=== PATIENT | female | born 1980 | race Asian ===

== ENCOUNTER 2022-08-24 12:51 | Inpatient (IN) ==
[2022-08-24] MEDS ORDERED: SODIUM CHLORIDE 0.9% 1000ML 1,000 ML IV STA (13:10)
--- NOTE | 2022-08-24 13:32 | Emergency Department Note ---
Impression & Plan Supraventricular tachycardia, Heart palpitations ED Provider Note HISTORY OF PRESENT ILLNESS: Patient is a 42-year-old female presenting with palpitations. Patient reports that for the last 4 days she has been having daily episodes of palpitations and her heart rate going up to the 150s. She states that it feels like her heart is racing and then seems to pause for seconds and then start racing again. Denies any chest pain. Denies any significant shortness of breath or lightheadedness with the episodes. Denies any DVT or PE history. She denies any OCP use. Denies any anticoagulation use. She reports that she has had intermittent palpitations since she was a teenager, but has never had palpitations like she is experiencing the last 4 days. Denies any lower extremity edema. Denies any excessive caffeine use. Denies any recent changes in medications. She was seen by her primary care provider today in clinic and an EKG showed her heart rate to be in the 160s, she was referred to the emergency department. Patient denies any recent fevers, cough or shortness of breath ROS: as above PHYSICAL EXAM: Constitutional: Patient appears in no acute distress. HENT: Head: Normocephalic and atraumatic. Eyes: EOMI, PERRL Mouth/Throat: Mucous membranes moist. Neck: Trachea midline. Neck supple. Cardiovascular: Tachycardic with regular rhythm. No murmurs, rubs or gallops. Intact distal pulses. Pulmonary/Chest: No respiratory distress. Breath sounds clear and equal bilaterally. No wheezes or rales. Abdominal: BS +. Abdomen soft, no tenderness, rebound or guarding. Musculoskeletal: No edema, tenderness or deformity noted. Skin: Warm and dry. No rash, erythema, pallor or cyanosis Psychiatric: Appropriate mood and affect for situation. Neurological: Alert and keenly responsive. CN II-XII grossly intact, moving all extremities equally and fully. MDM: - Vitals signs showed hypertension and tachycardia. - History obtained via patient. Patient presents with recurrent palpitations. Patient reports she has been having recurrent palpitations multiple times a day for the last 4 days. Denies any recent changes in medications. Denies chest pain or shortness of breath. She reports her heart races and feels like it pauses for minutes and then starts racing again. She was at her PCPs office today and found to be in SVT and referred to the emergency department. - Chronic conditions affecting care: none - Differential diagnoses include, but are not limited to: electrolyte abnormality; pulmonary embolism; ACS; dysrhythmia - Order placed for continuous cardiac monitoring. At this time, monitor showed rate of 98 bpm with normal sinus rhythm, per my interpretation. - External medical records reviewed. EKG from patient's clinic appointment showed SVT with a rate of 166 bpm. - EKG reviewed by myself showed sinus rhythm. Tachycardic with a rate of 123 bpm. QTc 440. No acute ischemic changes. Noted to have an incomplete right bundle branch block. - Shortly after her initial EKG in the emergency department, the patient had he art rate up to the 170s-200s. Repeat EKG showed SVT. Patient reports feeling like her heart is racing. Multiple Valsalva maneuvers were performed without breaking the SVT. She was then given 6 mg of IV adenosine with successful chemical cardioversion. Repeat EKG post adenosine showed normal sinus rhythm. I contacted the credit reporting clerk on-call, Dr. Bill, who recommended starting Toprol XL 25 mg daily and follow-up in clinic with entry level staff accountant. Patient was doing well after the adenosine but then again flipped into SVT. Heart rate in the 170s. Again Valsalva maneuvers were attempted without success. She was given an additional 6 mg of IV adenosine with successful chemical cardioversion. Repeat EKG again shows normal sinus rhythm. Patient was given 25 mg of oral metoprolol XL for more prolonged rate control. After drinking water to take her oral medication, the patient again flipped into SVT with a rate in the 200s. She was given 12 mg of IV adenosine with successful chemical cardioversion. She did have a significantly longer pause on her telemetry strip and looked like she had gone into asystole, but the patient was talking during the asystolic episode. Repeat EKG shows normal sinus rhythm. She was then given 5 mg IV metoprolol for further rate control. I again spoke with Dr. Bill who agreed with admission given her recurrent SVT and need for more emergent cardiac evaluation. - Patient was doing well for a longer period of time after the IV metoprolol, but then she flipped into SVT again. She did break on her own this time. Given another dose of 5 mg of IV Lopressor for further rate control - Laboratory workup interpreted by myself showed normal WBC; stable electrolytes; normal troponin; normal dimer - Differential diagnosis included the possibility of PE. Regarding PE, the patient is low risk by Wells' criteria. Dimer WNL, so CTA not obtained. - CXR negative for acute cardiopulmonary pathology, per my interpretation. - Discussion was had with director of social media marketing about patient's case and need for admission. - Hospitalist, Dr. Amin, consulted for admission. - Patient admitted to [facility]ist service for further evaluation and management. I provided 61 minutes of critical care time to this patient's care outside of billable procedures ASSESSMENT AND PLAN: Diagnosis: recurrent SVT; palpitations Plan: admit Past Med/Surg History Medical History (Updated 08/24/22 @ 15:19 by Elda Pimentel MD) Adopted Anal fissure Anal fissure Bright red blood per rectum Racing heart beat Surgical History H/O oral surgery Family History Other Adopted Social History Smoking Status: Never smoker Age Started Using Tobacco: 23; Age Quit Using Tobacco: 36; packs per day: 0.5; Cigarettes Per Day: 7; Second Hand Exposure: No; Hx Alcohol Use: No Hx Substance Use: No Preferred Language: Thai Communication Ability: Effective Visual Impairment: No Limitations Hearing Ability: Normal Sewage Treatment Plant Operator Required: No marital status: Single Current Living Situation: Significant Other current occupational status: employed 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 Feels Safe at Home: Yes Childhood Exposure to Second-Hand Smoke: No caffeine: Yes during the past year weight has: increased > 10 lbs Dental Care, Regularly: Yes Physical Activity Frequency: Daily Seatbelt Use: always Sunscreen Use: No Assistive Devices: Contacts Allergies Allergies Allergy/AdvReac Type Severity Reaction Status Date / Time No Known Allergies Allergy Verified 08/24/22 14:36 Home Meds Home Medications Medication Instructions Recorded Confirmed lysine 500 mg tablet (L-Lysine) 500 mg PO DAILY 08/18/19 08/24/22 valacyclovir 500 mg tablet 1,000 mg PO BID PRN outbreak 08/24/22 08/24/22 (Valtrex) Results & Data (ED) Vital Signs Vital Signs - 24 hr 08/24/22 13:04 08/24/22 13:44 08/24/22 13:26 Temperature 36.4 C L Temperature Source Temporal Artery Scan Pulse Rate 102 H 94 H 88 Pulse Rate from SpO2 Sensor Respiratory Rate 16 Respiratory Effort / Characteristics Non-Labored Spontaneous Respiratory Depth Normal Blood Pressure 165/106 H Blood Pressure Mean 125 Pulse Oximetry 100 100 Oxygen Delivery Method Room Air Room Air Sepsis Recent Fever Within 48 Hours No Sepsis New/Unexplained Change in Mental Status N/A Sepsis Action Taken by Nursing No Action Required 08/24/22 13:35 08/24/22 15:04 08/24/22 13:27 Temperature Temperature Source Pulse Rate 198 H 158 H 86 Pulse Rate from SpO2 Sensor 85 Respiratory Rate 18 Respiratory Effort / Characteristics Respiratory Depth Blood Pressure 131/96 Blood Pressure Mean Pulse Oximetry 100 Oxygen Delivery Method Sepsis Recent Fever Within 48 Hours Sepsis New/Unexplained Change in Mental Status Sepsis Action Taken by Nursing 08/24/22 13:30 08/24/22 13:30 08/24/22 13:40 Temperature Temperature Source Pulse Rate 84 172 H Pulse Rate from SpO2 Sensor 85 Respiratory Rate 21 11 L Respiratory Effort / Characteristics Respiratory Depth Blood Pressure 140/102 H Blood Pressure Mean 114 Pulse Oximetry 100 Oxygen Delivery Method Sepsis Recent Fever Within 48 Hours Sepsis New/Unexplained Change in Mental Status Sepsis Action Taken by Nursing 08/24/22 13:41 08/24/22 13:41 08/24/22 13:45 Temperature Temperature Source Pulse Rate 125 H 97 H Pulse Rate from SpO2 Sensor 91 H Respiratory Rate 17 23 Respiratory Effort / Characteristics Respiratory Depth Blood Pressure 173/119 H Blood Pressure Mean 137 Pulse Oximetry 99 Oxygen Delivery Method Sepsis Recent Fever Within 48 Hours Sepsis New/Unexplained Change in Mental Status Sepsis Action Taken by Nursing 08/24/22 13:45 08/24/22 13:50 08/24/22 14:00 Temperature Temperature Source Pulse Rate 86 Pulse Rate from SpO2 Sensor 86 Respiratory Rate 15 Respiratory Effort / Characteristics Respiratory Depth Blood Pressure 146/93 H 132/98 Blood Pressure Mean 110 109 Pulse Oximetry 100 Oxygen Delivery Method Sepsis Recent Fever Within 48 Hours Sepsis New/Unexplained Change in Mental Status Sepsis Action Taken by Nursing 08/24/22 14:00 08/24/22 14:10 08/24/22 14:15 Temperature Temperature Source Pulse Rate 87 90 168 H Pulse Rate from SpO2 Sensor 86 93 H 172 H Respiratory Rate 27 H 14 21 Respiratory Effort / Characteristics Respiratory Depth Blood Pressure Blood Pressure Mean Pulse Oximetry 100 100 98 Oxygen Delivery Method Sepsis Recent Fever Within 48 Hours Sepsis New/Unexplained Change in Mental Status Sepsis Action Taken by Nursing 08/24/22 14:15 08/24/22 14:17 08/24/22 14:17 Temperature Temperature Source Pulse Rate 99 H Pulse Rate from SpO2 Sensor 100 H Respiratory Rate 15 Respiratory Effort / Characteristics Respiratory Depth Blood Pressure 131/99 147/96 H Blood Pressure Mean 109 113 Pulse Oximetry 100 Oxygen Delivery Method Sepsis Recent Fever Within 48 Hours Sepsis New/Unexplained Change in Mental Status Sepsis Action Taken by Nursing 08/24/22 14:20 08/24/22 14:30 08/24/22 14:30 Temperature Temperature Source Pulse Rate 79 76 Pulse Rate from SpO2 Sensor 81 77 Respiratory Rate 16 12 Respiratory Effort / Characteristics Respiratory Depth Blood Pressure 130/91 Blood Pressure Mean 104 Pulse Oximetry 100 98 Oxygen Delivery Method Sepsis Recent Fever Within 48 Hours Sepsis New/Unexplained Change in Mental Status Sepsis Action Taken by Nursing 08/24/22 14:40 08/24/22 14:46 08/24/22 14:46 Temperature Temperature Source Pulse Rate 81 96 H Pulse Rate from SpO2 Sensor 80 Respiratory Rate 25 H 23 Respiratory Effort / Characteristics Respiratory Depth Blood Pressure 148/119 H Blood Pressure Mean 128 Pulse Oximetry 99 Oxygen Delivery Method Sepsis Recent Fever Within 48 Hours Sepsis New/Unexplained Change in Mental Status Sepsis Action Taken by Nursing 08/24/22 14:50 08/24/22 15:00 08/24/22 15:01 Temperature Temperature Source Pulse Rate 62 82 164 H Pulse Rate from SpO2 Sensor 80 Respiratory Rate 25 H 21 15 Respiratory Effort / Characteristics Respiratory Depth Blood Pressure Blood Pressure Mean Pulse Oximetry 100 Oxygen Delivery Method Sepsis Recent Fever Within 48 Hours Sepsis New/Unexplained Change in Mental Status Sepsis Action Taken by Nursing 08/24/22 15:01 Temperature Temperature Source Pulse Rate Pulse Rate from SpO2 Sensor Respiratory Rate Respiratory Effort / Characteristics Respiratory Depth Blood Pressure 121/92 Blood Pressure Mean 101 Pulse Oximetry Oxygen Delivery Method Sepsis Recent Fever Within 48 Hours Sepsis New/Unexplained Change in Mental Status Sepsis Action Taken by Nursing Laboratory Data 08/24/22 13:17 08/24/22 13:17 Lab Results 08/24/22 08/24/22 08/24/22 Range/Units 13:17 13:17 13:17 WBC 8.14 (4.8-10.8) K/ul RBC 5.15 (4.20-5.40) M/uL Hgb 15.6 (12.0-16.0) g/dl Hct 47.4 H (37.0-47.0) % MCV 92.0 (80.0-100.0) fL MCH 30.3 (25.0-34.0) pg MCHC 32.9 (32.0-36.0) g/dL RDW Std Deviation 46.5 H (36.4-46.3) fL RDW Coeff of Anneliese 13.7 (11.5-14.5) % Plt Count 524 H (130-400) K/uL MPV 9.6 (9.4-12.4) fL Immature Gran % (Auto) 0.1 % Neut % (Auto) 61.1 % Lymph % (Auto) 31.2 % [place] % (Auto) 4.7 % Eos % (Auto) 2.0 % Baso % (Auto) 0.9 % Neut # (Auto) 4.98 (1.40-6.50) K/uL Lymph # (Auto) 2.54 (1.2-3.4) K/uL [place] # (Auto) 0.38 (0.11-0.59) K/uL Eos # (Auto) 0.16 (0-0.50) K/uL Baso # (Auto) 0.07 (0-0.2) K/uL Immature Gran # (Auto) 0.01 (0.01-0.20) K/uL PT 10.3 (9.0-12.0) Seconds INR 1.0 (0.9-1.1) D-Dimer < 190 (0-500) ug/L FEU Sodium 137 (136-145) mmol/L Potassium 3.8 (3.5-5.1) mmol/L Chloride 103 (98-107) mmol/L Carbon Dioxide 27 (21-32) mmol/L Anion Gap 7 (3-11) BUN 11 (6-23) mg/dl Creatinine 0.63 (0.6-1.2) mg/dl Est Cr Clr Drug Dosing 101.5 ml/min Est GFR ( Amer) 129.1 ml/min Est GFR (Non-Af Amer) 111.4 ml/min BUN/Creatinine Ratio 17.5 (10-20) Glucose 108 H (70-99(Fasting)) mg/dl Calcium 9.8 (8.5-10.1) mg/dl Magnesium 2.1 (1.7-2.4) mg/dl Total Bilirubin 0.5 (0.2-1.0) mg/dl AST 18 (13-39) U/L ALT 13 (7-52) U/L Alkaline Phosphatase 48 (34-104) U/L Troponin I High Sens 2.6 (0-14) pg/ml Total Protein 8.8 H (6.0-8.3) gm/dl Albumin 5.3 H (3.4-5.0) gm/dl Globulin 3.5 (2.5-4.0) gm/dl Albumin/Globulin Ratio 1.5 (0.9-2) TSH (0.300-4.500) uIu/ml Urine Color Urine Appearance (Clear) Urine pH (4.5-7.5) Ur Specific Gamaliel (1.000-1.030) Urine Protein (Negative) Urine Glucose (UA) (Negative) Urine Ketones (Negative) Urine Blood (Negative) Urine Nitrite (Negative) Urine Bilirubin (Negative) Urine Urobilinogen (Negative) Ur Leukocyte Esterase (Negative) Urine WBC (Auto) (0-5) /hpf Urine RBC (Auto) (0-4) /hpf U Hyaline Cast (Auto) (0-5) /lpf U Epithel Cells (Auto) (0-5) /lpf Urine Bacteria (Auto) (Negative) 08/24/22 08/24/22 08/24/22 Range/Units 13:17 13:49 14:52 WBC (4.8-10.8) K/ul RBC (4.20-5.40) M/uL Hgb (12.0-16.0) g/dl Hct (37.0-47.0) % MCV (80.0-100.0) fL MCH (25.0-34.0) pg MCHC (32.0-36.0) g/dL RDW Std Deviation (36.4-46.3) fL RDW Coeff of Anneliese (11.5-14.5) % Plt Count (130-400) K/uL MPV (9.4-12.4) fL Immature Gran % (Auto) % Neut % (Auto) % Lymph % (Auto) % [place] % (Auto) % Eos % (Auto) % Baso % (Auto) % Neut # (Auto) (1.40-6.50) K/uL Lymph # (Auto) (1.2-3.4) K/uL [place] # (Auto) (0.11-0.59) K/uL Eos # (Auto) (0-0.50) K/uL Baso # (Auto) (0-0.2) K/uL Immature Gran # (Auto) (0.01-0.20) K/uL PT (9.0-12.0) Seconds INR (0.9-1.1) D-Dimer (0-500) ug/L FEU Sodium (136-145) mmol/L Potassium (3.5-5.1) mmol/L Chloride (98-107) mmol/L Carbon Dioxide (21-32) mmol/L Anion Gap (3-11) BUN (6-23) mg/dl Creatinine (0.6-1.2) mg/dl Est Cr Clr Drug Dosing ml/min Est GFR ( Amer) ml/min Est GFR (Non-Af Amer) ml/min BUN/Creatinine Ratio (10-20) Glucose (70-99(Fasting)) mg/dl Calcium (8.5-10.1) mg/dl Magnesium Cancelled (1.7-2.4) mg/dl Total Bilirubin (0.2-1.0) mg/dl AST (13-39) U/L ALT (7-52) U/L Alkaline Phosphatase (34-104) U/L Troponin I High Sens (0-14) pg/ml Total Protein (6.0-8.3) gm/dl Albumin (3.4-5.0) gm/dl Globulin (2.5-4.0) gm/dl Albumin/Globulin Ratio (0.9-2) TSH 1.691 (0.300-4.500) uIu/ml Urine Color Yellow Urine Appearance Clear (Clear) Urine pH 6.0 (4.5-7.5) Ur Specific Gamaliel 1.005 (1.000-1.030) Urine Protein Negative (Negative) Urine Glucose (UA) Negative (Negative) Urine Ketones Negative (Negative) Urine Blood Negative (Negative) Urine Nitrite Negative (Negative) Urine Bilirubin Negative (Negative) Urine Urobilinogen Negative (Negative) Ur Leukocyte Esterase Trace H (Negative) Urine WBC (Auto) 1-5 (0-5) /hpf Urine RBC (Auto) 0-4 (0-4) /hpf U Hyaline Cast (Auto) 0 (0-5) /lpf U Epithel Cells (Auto) 5-10 H (0-5) /lpf Urine Bacteria (Auto) Negative (Negative) Administered Medications Discontinued Medications Adenosine (Adenosine Iv Soln 3 Mg/Ml 2 Ml Vial) Confirm Administered Dose 18 mg IV .STK-MED ONE Stop: 08/24/22 13:38 Last Admin: 08/24/22 13:52 Dose: 6 mg Documented By: Adenosine (Adenosine Iv Soln 3 Mg/Ml 2 Ml Vial) Confirm Administered Dose 12 mg IV .STK-MED ONE Stop: 08/24/22 14:06 Last Admin: 08/24/22 14:16 Dose: 12 mg Documented By: ML Adenosine (Adenosine Iv Soln 3 Mg/Ml 2 Ml Vial) Confirm Administered Dose 6 mg IV .STK-MED ONE Stop: 08/24/22 14:07 Last Admin: 08/24/22 14:08 Dose: 6 mg Documented By: ML Adenosine (Adenosine Iv Soln 3 Mg/Ml 2 Ml Vial) Confirm Administered Dose 6 mg IV .STK-MED ONE Stop: 08/24/22 14:14 Last Admin: 08/24/22 15:01 Dose: Not Given Documented By: ML Aspirin (Aspirin Chew 324 Mg) Confirm Administered Dose 324 mg .ROUTE .STK-MED ONE Stop: 08/24/22 14:59 Last Admin: 08/24/22 15:05 Dose: Not Given Documented By: ML Sodium Chloride (Nss 1000ml) 1,000 mls @ 999 mls/hr IV .Q1H1M STA Stop: 08/24/22 14:10 Last Admin: 08/24/22 13:26 Dose: 999 mls/hr Documented By: MERCEDES Metoprolol Succinate (Metoprolol Succ 25mg Ext Rel Tab) 25 mg PO NOW STA Stop: 08/24/22 13:54 Last Admin: 08/24/22 14:10 Dose: 25 mg Documented By: ML Metoprolol Tartrate (Metoprolol Tartrate 1 Mg/Ml Vial) Confirm Administered Dose 5 mg IV .STK-MED ONE Stop: 08/24/22 14:17 Last Admin: 08/24/22 14:42 Dose: Not Given Documented By: ML Metoprolol Tartrate (Metoprolol Tartrate 1 Mg/Ml Vial) 5 mg IV NOW STA Stop: 08/24/22 14:22 Last Admin: 08/24/22 14:17 Dose: 5 mg Documented By: ML Metoprolol Tartrate (Metoprolol Tartrate 1 Mg/Ml Vial) 5 mg IV NOW STA Stop: 08/24/22 15:00 Last Admin: 08/24/22 15:04 Dose: 5 mg Documented By: AB Imaging Data Radiologist's Impression: Chest X-Ray 08/24/22 13:10 XR chest 1V portable CLINICAL HISTORY: palpitations TECHNIQUE: Single frontal radiograph of the chest was obtained. Comparison: None available at the time of this dictation. FINDINGS: No lines and tubes are seen. The cardiomediastinal silhouette is normal. The lungs are clear. No evidence of pleural effusion or pneumothorax. IMPRESSION: No acute chest disease. ACT 112: Negative or not required by law. Electronically signed by: Sin Medina M.D. 08/24/2022 2:08 PM Discharge Plan Visit Data Chief Complaint: Abnormal Labs/Diagnostic Testing Stated Complaint: REF BY DOC,ABNORMAL EKG,PALPITATIONS ED Provider: Elda Pimentel Discharge Problem: Supraventricular tachycardia, Heart palpitations Forms Stand Alone Forms: [facility] Prescriptions Prescriptions: No Action lysine [L-Lysine] 500 mg tablet 500 mg PO DAILY valacyclovir [Valtrex] 500 mg tablet 1,000 mg PO BID PRN (Reason: outbreak) Rx Instructions: Take 1,000 mg orally q12 for one day PRN Referrals Referrals: Alecia Craig MD [Primary Care Provider] -
[2022-08-24] MEDS ORDERED: ADENOSINE IV SOLN 3 MG/ML 2 ML VIAL IV ONE ×2 (13:37→14:06)
[2022-08-24] MEDS ORDERED: METOPROLOL SUCC 25MG EXT REL TAB PO STA (13:53)
[2022-08-24 13:58] LABS: Basophils # (auto) 0.07 K/uL (0-0.2); Basophils % (auto) 0.9 %; Eosinophils # (auto) 0.16 K/uL (0-0.50); Hematocrit (blood only) 47.4 % (37.0-47.0); Hemoglobin 15.6 g/dl (12.0-16.0); Immature Granulocytes # (auto) 0.01 K/uL (0.01-0.20); Immature Granulocytes % (auto) 0.1 %; Lymphocytes # (auto) 2.54 K/uL (1.2-3.4); Lymphocytes % (auto) 31.2 %; Mean Corpuscular Hemoglobin 30.3 pg (25.0-34.0); Mean Corpuscular Hgb Conc 32.9 g/dL (32.0-36.0); Mean Platelet Volume 9.6 fL (9.4-12.4); Monocytes # (auto) 0.38 K/uL (0.11-0.59); Monocytes % (auto) 4.7 %; Neutrophils # (auto) 4.98 K/uL (1.40-6.50); Neutrophils % (auto) 61.1 %; Platelet Count 524 K/uL (130-400); RDW Coefficient of Variation 13.7 % (11.5-14.5); RDW Standard Deviation 46.5 fL (36.4-46.3); Red Blood Count 5.15 M/uL (4.20-5.40); White Blood Count 8.14 K/ul (4.8-10.8)
[2022-08-24 14:08] LABS: Albumin Globulin Ratio 1.5 (0.9-2); Albumin Level 5.3 gm/dl (3.4-5.0); BUN Creatinine Ratio 17.5 (10-20); Bilirubin,Total 0.5 mg/dl (0.2-1.0); Calcium 9.8 mg/dl (8.5-10.1); Creatinine Clr Calc Pharmacy 101.5 ml/min; Est GFR (African American) 129.1 ml/min; Est GFR (Non-African American) 111.4 ml/min; Globulin 3.5 gm/dl (2.5-4.0); Potassium 3.8 mmol/L (3.5-5.1); Total Protein 8.8 gm/dl (6.0-8.3)
--- NOTE | 2022-08-24 14:09 | XRay Report ---
XR chest 1V portable CLINICAL HISTORY: palpitations TECHNIQUE: Single frontal radiograph of the chest was obtained. Comparison: None available at the time of this dictation. FINDINGS: No lines and tubes are seen. The cardiomediastinal silhouette is normal. The lungs are clear. No evid ence of pleural effusion or pneumothorax. IMPRESSION: No acute chest disease. ACT 112: Negative or not required by law. Electronically signed by: Sin Medina M.D. 08/24/2022 2:08 PM
[2022-08-24] MEDS: ADENOSINE IV SOLN 3 MG/ML 2 ML VIAL IV ONE ×4 (14:10→15:01)
[2022-08-24 14:13] LABS: Troponin I High Sensitivity 2.6 pg/ml (0-14)
[2022-08-24] MEDS ORDERED: METOPROLOL TARTRATE 1 MG/ML VIAL IV ONE ×3 (14:16→18:30)
[2022-08-24] MEDS ORDERED: METOPROLOL TARTRATE 1 MG/ML VIAL IV STA ×2 (14:21→14:59)
[2022-08-24 14:33] LABS: Magnesium 2.1 mg/dl (1.7-2.4)
[2022-08-24 14:39] LABS: D Dimer < 190 ug/L FEU (0-500); Prothrombin Time 10.3 Seconds (9.0-12.0)
[2022-08-24] MEDS ORDERED: ASPIRIN CHEW 324 MG ONE (14:58)
--- NOTE | 2022-08-24 15:12 | History & Physical Report ---
Date of Service August 24, 2022 Assessment & Plan (1) Supraventricular tachycardia: Plan: -Admit to the PCU on tele -The patient is currently afebrile, hemodynamically stable, stable on RA with HR currently in the 50's-90's on tele -Patient has a history of intermittent tachycardia but has noticed more frequent episodes recently -Was found to be in SVT at her PCP today and sent to the ED -Received 2 doses of 6 mg IV adenosine, 12 mg IV adenosine, 2 doses of 5 mg IV Lopressor, 25 mg PO Lopressor and 1L NSS prior to admission -Cardiology was consulted, touched based and they will see her shortly, will hold additional beta-blocking agents at this time until they see her -Continue to monitor on tele, keep pacer pads in place for now -Will obtain a TTE for further assessment -Keep NPO for now until she is seen by [facility] - SCD's for DVT PPX -AM CBC, CMP, Mag Plan The patient was discussed with Dr. Amin at the time of the admission History of Present Illness Chief Complaint: Heart palpitations Primary Care Provider: Alecia Craig MD Bethany is a 42 year old female with a PMH significant for tachycardia who presented to the [facility] ED on 08/24/22 for tachycardia noted at her PCP's office today. Per chart review, the patient has a previous history of short episodes of tachycardia which normally resolve on their own. Over the past 4 days the episodes have been increasing in frequency with HR in the 150's a home. She was seen by here PCP today who obtained an ECG which showed HR in the 160's; she was sent to the ED for further evaluation. In the ED the patient was found to be afebrile, hypertensive at 165/106, and an initial HR of 198. ECG showed SVT with HR of [address] depression in the inferior and lateral leads. Labs were remarkable for A CBC with platelet count of 524 otherwise WNL, CMP WNL, initial high sensitivity trop of 2.6. Chest xray was read as "No acute chest disease.". The patient was given two doses of 6 mg IV adenosine, and one dose of 12 mg IV adenosine and she initially broke into the 80's. Her HR went back into the 150's-160's and she received 2 doses 5 mg IV Lopressor and 25 mg PO metoprolol succinate. Cardiology was Consulted by the ED staff who recommended admission for further assessment and treatment. At the time of the exam the patient was sitting in bed in no acute distress with her significant other sitting bedside. She states that she has a previous history of tachycardia with HR intermittently in the 140's. When these episodes occur it's usually for 15-20 min but they resolve spontaneously or if she holds her breath or drinks cold water. Over the past 4 days she has had increased epis odes of tachycardia with episodes lasting up to 1 hour. When they occur she is without chest pain, SOB, lightheaded, or dizziness but she will feel the heart palpitations. She was seen by her PCP today who sent her to the ED for further evaluation. At the time of my exam the patient had received a dose of 5 mg IV Lopressor as her HR increased to the 150's. Her HR remained in the 50's-80's during my exam with PAC's and PVC's noted on the monitor. She was asymptomatic during my exam and her blood pressure remained stable. She denies recent fever, chills, cough, nausea, vomiting, diarrhea, dysuria hematuria, LE swelling and recent trauma. Please refer to Dr. Amin's attestation for any changes to the treatment plan Allergies Allergy/AdvReac Type Severity Reaction Status Date / Time No Known Allergies Allergy Verified 08/24/22 14:36 Home Medications Medication Instructions Recorded Confirmed Type lysine 500 mg tablet (L-Lysine) 500 mg PO DAILY 08/18/19 08/24/22 History valacyclovir 500 mg tablet 1,000 mg PO BID PRN outbreak 08/24/22 08/24/22 Histo ry (Valtrex) Past Med/Surg History Medical History Adopted Anal fissure Anal fissure Bright red blood per rectum Racing heart beat Surgical History H/O oral surgery Family History Other Adopted Social History Smoking Status: Never smoker Age Started Using Tobacco: 23; Age Quit Using Tobacco: 36; packs per day: 0.5; Cigarettes Per Day: 7; Second Hand Exposure: No; Hx Alcohol Use: No Hx Substance Use: No Preferred Language: Kiswahili Communication Ability: Effective Visual Impairment: No Limitations Hearing Ability: Normal Bear Keeper Required: No marital status: Single Current Living Situation: Significant Other current occupational status: employed 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 All systems have been reviewed and are otherwise negative. Physical Exam Physical Exam: Physical Exam: General: In no acute distress, stated age, well-nourished, good hygiene, non- toxic appearing HEENT: Normocephalic, atraumatic, no scleral icterus, pupils around round, symmetrical, and reactive to light, moist mucus membranes, trachea midline, no thyromegaly Chest/Pulm: No respiratory distress, symmetrical chest expansion, clear breath sounds throughout, cardioversion pads currently in place Cardiac: regular rate with irregular rhythm, no murmurs noted Abdomen: Negative for ascites and bruising, normoactive bowel sounds, soft, non-tender to palpation throughout Musculoskeletal: Symmetrical and without signs of acute trauma, upper and lower extremities with full ROM, no atrophy, spasticity, or flaccidity Extremities: Radial, dorsalis pedis, and posterior tibial pulses are intact and symmetrical, no edema noted in the BL LE's Skin: Warm, dry, no rashes , lesions, or scars noted Neuro: Alert and oriented to person, place, month, year, and president, no focal defects, CN II-XII tested and intact,no tremors noted Psych: No acute distress, calm and cooperative during the exam Results & Data Results & Data ([facility]) Vital Signs (Past 12 Hours) Vital Signs Temp Pulse Resp BP Pulse Ox O2 Del Method 08/24/22 13:35 198 H 08/24/22 13:26 88 08/24/22 13:44 94 H 100 Room Air 08/24/22 13:04 36.4 C L 102 H 16 165/106 H 100 Room Air Laboratory Results Abnormal lab results 08/24/22 08/24/22 08/24/22 Range/Units 13:17 13:17 14:52 Hct 47.4 H (37.0-47.0) % RDW Std Deviation 46.5 H (36.4-46.3) fL Plt Count 524 H (130-400) K/uL Glucose 108 H (70-99(Fasting)) mg/dl Total Protein 8.8 H (6.0-8.3) gm/dl Albumin 5.3 H (3.4-5.0) gm/dl Ur Leukocyte Esterase Trace H (Negative) U Epithel Cells (Auto) 5-10 H (0-5) /lpf Diagnostic Findings Chest X-Ray 08/24/22 13:10 XR chest 1V portable CLINICAL HISTORY: palpitations TECHNIQUE: Single frontal radiograph of the chest was obtained. Comparison: None available at the time of this dictation. FINDINGS: No lines and tubes are seen. The cardiomediastinal silhouette is normal. The lungs are clear. No evidence of pleural effusion or pneumothorax. IMPRESSION: No acute chest disease. ACT 112: Negative or not required by law. Electronically signed by: Sin Medina M.D. 08/24/2022 2:08 PM ECG Additional Comments: Sinus tachycardia Biatrial enlargement Rightward axis Cannot rule out Anteroseptal infarct , age undetermined Abnormal ECG When compared with ECG of 24-AUG-2022 14:06, (unconfirmed) Sinus rhythm has replaced Wide QRS tachycardia Code Status & VTE Plan Code Status Full code VTE Prophylaxis Plan VTE Prophylaxis will be ordered: Yes Supervising Physician Co-Signing Physician Notes Patient seen and examined, chart reviewed, case discussed with Eduardo Baig PA-C and I agree with the assessment and plan as above except as otherwise noted Labs and images reviewed 42-year-old female with recurrent episodes of SVT. Patient received 6 mg IV adenosine 2 doses, 1 dose of 12 mg of adenosine with return to normal sinus rhythm. Did convert back to SVT, and received 2 doses of IV Lopressor 5 mg and 1 dose of p.o. metoprolol. Patient converted back to normal sinus after carotid massage. Case has been reviewed with cardiology, will need to see electrophysiology in the morning. Defer rhythm control strategy which may affect EP studies. If returns to SVT overnight can start diltiazem drip at low- dose without bolus, 1 mg starting rate. If pressure limited may use push metoprolol, defer additional oral metoprolol. At time bedside assessment patient is back in sinus, with normal pressure, satting well and lungs are clear. Discussed with PA and patient, who are in agreement with plan. PG Care Time/CCT Total # of Minutes Spent Total Time Spent with Patient: Total time spent is greater than 50% in coordination of care (as documented) at patient's floor/unit and/or counseling patient: [place] [address] INT INP/OBS CARE 3/75MIN Patient Type New Medical Decision Making High Complexity Diagnoses Supraventricular tachycardia I47.1
[2022-08-24 15:15] LABS: Appearance Urine Clear (Clear); Bacteria Urine Automated Negative (Negative); Bilirubin Urine Negative (Negative); Blood Urine Negative (Negative); Cast Urine Automated 0 /lpf (0-5); Color Urine Yellow; Glucose Urine UA Negative (Negative); Ketones Urine Negative (Negative); Leukocyte Esterase Urine Trace (Negative); Nitrite Urine Negative (Negative); Protein Urine Negative (Negative); RBC Urine Automated 0-4 /hpf (0-4); Specific Gravity Urine 1.005 (1.000-1.030); Urobilinogen Urine Negative (Negative)
--- NOTE | 2022-08-24 15:45 | Electrocardiogram Report ---
Test Reason : Blood Pressure : / mmHG Vent. Rate : 088 BPM Atrial Rate : 088 BPM P-R Int : 150 ms QRS Dur : 096 ms QT Int : 354 ms P-R-T Axes : 080 091 067 degrees QTc Int : 428 ms Normal sinus rhythm Biatrial enlargement Rightward axis Incomplete right bundle branch block Abnormal ECG No previous ECGs available Confirmed by Gold Bill ([id number]) on 08/24/2022 3:44:46 PM Referred By: Confirmed By:Gold Bill
--- NOTE | 2022-08-24 15:46 | Electrocardiogram Report ---
Test Reason : Blood Pressure : / mmHG Vent. Rate : 165 BPM Atrial Rate : 081 BPM P-R Int : 000 ms QRS Dur : 082 ms QT Int : 290 ms P-R-T Axes : 000 104 051 degrees QTc Int : 480 ms Supraventricular tachycardia Incomplete right bundle branch block ST depression in multiple leads (may be rate related) Abnormal ECG When compared with ECG of 24-AUG-2022 13:12, Supraventricular tachycardia now present Vent. rate has increased BY [address] now depressed in Inferior leads ST now depressed in Lateral leads Confirmed by Gold Bill ([id number]) on 08/24/2022 3:46:12 PM Referred By: Alecia Craig Confirmed By:Gold Bill
--- NOTE | 2022-08-24 15:49 | Electrocardiogram Report ---
Test Reason : Blood Pressure : / mmHG Vent. Rate : 109 BPM Atrial Rate : 109 BPM P-R Int : 202 ms QRS Dur : 104 ms QT Int : 322 ms P-R-T Axes : 076 088 066 degrees QTc Int : 433 ms Sinus tachycardia Biatrial enlargement Incomplete right bundle branch block Abnormal ECG When compared with ECG of 24-AUG-2022 13:35, Supraventricular tachycardia no longer present HR has decreased by 56 bpm Confirmed by Gold Bill ([id number]) on 08/24/2022 3:49:10 PM Referred By: Alecia Craig Confirmed By:Gold Bill
--- NOTE | 2022-08-24 15:51 | Electrocardiogram Report ---
Test Reason : Blood Pressure : / mmHG Vent. Rate : 117 BPM Atrial Rate : 117 BPM P-R Int : 176 ms QRS Dur : 084 ms QT Int : 324 ms P-R-T Axes : 075 092 061 degrees QTc Int : 451 ms Sinus tachycardia Biatrial enlargement Incomplete right bundle branch block Abnormal ECG When compared with ECG of 24-AUG-2022 14:06, Sinus rhythm has replaced Supraventricular tachycardia Confirmed by Gold Bill ([id number]) on 08/24/2022 3:51:22 PM Referred By: Alecia Craig Confirmed By:Gold Bill
--- NOTE | 2022-08-24 15:51 | Electrocardiogram Report ---
Test Reason : Blood Pressure : / mmHG Vent. Rate : 170 BPM Atrial Rate : 058 BPM P-R Int : 000 ms QRS Dur : 138 ms QT Int : 266 ms P-R-T Axes : 000 109 030 degrees QTc Int : 447 ms Supraventricular tachycardia Incomplete right bundle branch block ST depression in multiple leads Abnormal ECG When compared with ECG of 24-AUG-2022 13:42, Supraventricular tachycardia now present Vent. rate has increased BY 61 BPM Confirmed by Glod Bill ([id number]) on 08/24/2022 3:51:05 PM Referred By: Alecia Craig Confirmed By:Gold Bill
--- NOTE | 2022-08-24 17:32 | Cardiology Consultation ---
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 Initial therapy with adenosine successful in breaking the SVT, but carotid massage seems to work as well. She did receive oral and IV metoprolol but still has tendency to ectopy and recurrent SVT. She did receive IV and oral beta-romulo, at this point would recommend addition of a low-dose diltiazem infusion, could start as low as 1-2 mg/h to avoid hypotension. Synergistic effect of beta-romulo and calcium channel romulo should be adequate to manage recurrent SVT. If hypotension becomes an issue would use IV metoprolol (2-5 mg) for acute rate control, if BP runs higher would titrate diltiazem upward. Avoiding antiarrhythmics at this point, since ultimately she would benefit from an electrophysiologic study and possibly radiofrequency ablation therapy. Would recommend echocardiogram to evaluate cardiac structure, particularly with ECG showing biatrial enlargement. Absence of chest pain and normal troponin weighs against ischemic component, ST depressions may be rate related, but at some point a stress study may be warranted to more definitively exclude any myocardial ischemia. Dr. Patton will be seeing her tomorrow (Tuesday) to discuss electrophysiologic evaluation. History of Present Illness Reason for Consultation: PSVT Requesting Physician: Gregorio Amin MD Attending Physician: Gregorio Amin MD History of Present Illness 42-year-old generally healthy woman who has had intermittent palpitations since adolescence presents today with recurrent tachypalpitations and ECG consistent with supraventricular tachycardia. She does not note any chest pain with the palpitations, only a sense of a rapid heartbeat. No dyspnea, diaphoresis, presyncope, or syncope. She has had evaluation in the past with Holter monitors, but they were never able to capture of the rhythm. She does not recall if she had an echocardiogram. Palpitations occurred only every few months until recently, for the past 6 months they have been occurring up to several times a month, culminating in sustained episodes over the past 3 days. During my evaluation in the emergency department, she was comfortable when in sinus rhythm. She had several episodes of recurrent SVT which were experienced as tachypalpitations, Valsalva maneuver was ineffective but carotid massage resulted in prompt conversion to sinus rhythm each time. She also had periods of sinus with frequent atrial and occasional ventricular ectopy which she experienced as palpitations as well. ECGs show sinus rhythm with biatrial enlargement, incomplete right bundle branch block, otherwise normal at baseline. ECGs during SVT show ECGs during SVT show rates up to [address] depression (may be rate related) and probable retrograde P waves (seen in aVL) suggesting AV jessika reentrant tachycardia. She has no major cardiovascular risk factors. She is pre or perimenopausal has no diabetes, is a non-smoker and is not hypertensive. As noted, when she returned to sinus rhythm without ectopy, she was symptom-fr ee. Allergies Allergy/AdvReac Type Severity Reaction Status Date / Time No Known Allergies Allergy Verified 08/24/22 14:36 Home Medications Medication Instructions Recorded Confirmed Type lysine 500 mg tablet (L-Lysine) 500 mg PO DAILY 08/18/19 08/24/22 History valacyclovir 500 mg tablet 1,000 mg PO BID PRN outbreak 08/24/22 08/24/22 History (Valtrex) Patient History Medical History Adopted Anal fissure Anal fissure Bright red blood per rectum Racing heart beat Surgical History H/O oral surgery Family History Other Adopted Social History Smoking Status: Former smoker Age Started Using Tobacco: 23; Age Quit Using Tobacco: 36; packs per day: 0.5; Cigarettes Per Day: 5; Second Hand Exposure: No; Hx Alcohol Use: No Hx Substance Use: No Preferred Language: Thai Communication Ability: Effective Visual Impairment: No Limitations Hearing Ability: Normal Telecasting Technician Required: No Beliefs That Will Affect Care: None marital status: Single Current Living Situation: Significant Other current occupational status: employed 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 Normotensive. Pulse 65 bpm and regular. Skin: no ecchymoses or generalized lesions. HEENT: unremarkable. Neck: no JVD or carotid bruits. Lungs: clear. Cardiac: regular rhythm, normal S1 and S2 no murmur or gallop. Abdomen: benign. Extremities: no edema, pulses intact. Neurologic: normal affect and conversation, nonfocal. Results & Data ([facility]) Laboratory Results Normal electrolytes, BUN 11, creatinine 0.63. Potassium 3.8, magnesium 2.1. Normal TSH. Troponin 2.6. Diagnostic Findings Chest x-ray unremarkable. PG Care Time/CCT Total # of Minutes Spent Total Time Spent with Patient: Total time spent is greater than 50% in coordination of care (as documented) at patient's floor/unit and/or counseling patient: Coding Level of Care Code 60646 IN/OBS CONSULT LVL 4,60M Diagnoses Supraventricular tachycardia I47.1
[2022-08-24] MEDS ORDERED: dilTIAZem HCl 5 MG/ML 5 ML VIAL IV STA (17:41)
[2022-08-24] MEDS ORDERED: STAT IV Infusion **Titration per Protocol STA (17:41)
[2022-08-24] MEDS ORDERED: dilTIAZem HCL 125 MG in DEXTROSE 5% 100 ML IV SCH (17:45)
[2022-08-24] MEDS ORDERED: dilTIAZem HCl 5 MG/ML 5 ML VIAL IV ONE ×2 (17:50→18:30)
[2022-08-25 06:17] LABS: Hematocrit (blood only) 42.3 % (37.0-47.0); Hemoglobin 14.1 g/dl (12.0-16.0); Mean Corpuscular Hemoglobin 30.4 pg (25.0-34.0); Mean Corpuscular Hgb Conc 33.3 g/dL (32.0-36.0); Mean Corpuscular Volume 91.2 fL (80.0-100.0); Mean Platelet Volume 9.5 fL (9.4-12.4); Platelet Count 456 K/uL (130-400); RDW Coefficient of Variation 13.7 % (11.5-14.5); RDW Standard Deviation 46.8 fL (36.4-46.3); Red Blood Count 4.64 M/uL (4.20-5.40); White Blood Count 7.27 K/ul (4.8-10.8)
[2022-08-25 06:41] LABS: Prothrombin Time 10.7 Seconds (9.0-12.0)
[2022-08-25 06:47] LABS: Albumin Globulin Ratio 1.5 (0.9-2); BUN Creatinine Ratio 23.4 (10-20); Bilirubin,Total 0.7 mg/dl (0.2-1.0); Calcium 8.9 mg/dl (8.5-10.1); Creatinine Clr Calc Pharmacy 99.2 ml/min; Est GFR (African American) 128.5 ml/min; Est GFR (Non-African American) 110.8 ml/min; Globulin 2.6 gm/dl (2.5-4.0); Magnesium 2.2 mg/dl (1.7-2.4); Potassium 3.6 mmol/L (3.5-5.1); Total Protein 6.6 gm/dl (6.0-8.3)
[2022-08-25] MEDS ORDERED: POTASSIUM CHLORIDE CRTAB 20 MEQ TABCR PO STA (07:25)
--- NOTE | 2022-08-25 11:11 | Hospitalist Progress Note ---
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 Patton, the ectrophysiologist, will be seeing her today to discuss evaluation -Recommend Mg >2, K >4, PO K this AM as K at 3.5 - Plan Diet: NPO, ice chips OK DVT prophylaxis: SCDs Full code Telemetry monitoring Admission and Anticipated Discharge Date Admission Date: August 24, 2022 Supervising Physician Co-Signing Physician Notes Medical Student Supervision Note: I was personally present during medical student patient encounter and independently interviewed and examined the patient and verified the nguyen history and physical, reviewed labs and image studies, discussed the case with Shilpa Holt and agree with the findings and care plan. 42 y/o F admitted for recurrent SVT at home and in ED despite multiple adenosine injections requiring IV cardizem drip Reported no chest pain, shortness of breath this am. did notice palpitation during the visit - monitor showed multiple PACs o/e - comfortable in bed. no distress heart - multiple ectopics PACs. baseline rate in 60s-70s. No m/g/r. no edema lungs - CTA. no resp distress. a/p - Recurrent SVT and multiple PACs - cardio consulted in ED due to recurrence despite treatment with adenosine. none since being on IV cardizem drip. plan to switch to oral cardizem d/c home in am if tolerated PO cardizem well. Daisy Sims is a 42 y.o. relatively healthy female who has had intermittent palpitations since puberty. Palpitations had increased in frequency over the past few months. She had an elevated heart rate over the past few days; she went to her PCP and was found to be in SVT so she was sent to the ED. 08/25: Today Bethany is overall feeling well but feeling a little weak compared to her baseline. Review of Systems Review of Systems: All systems reviewed & are unremarkable except as noted in HPI & below Physical Exam Physical Exam: General: Alert and in no acute distress. Skin: No ecchymoses or generalized lesions. HEENT: No JVD. Lungs: Breath sounds clear to auscultation bilaterally. Normal respiratory effort. Cardiovascular: Normal rate but irregular rhythm correlating with ectopy on monitor tech, normal S1 and S2 no murmurs. Abdomen: Nontender to palpation. Extremities: No edema bilaterally. Neurologic: Alert and oriented to person, place, and time. No focal neurological deficits. Results & Data Results & Data ([facility]) Vital Signs (Past 12 Hours) Vital Signs Temp Pulse Pulse Resp BP BP Pulse Ox 08/25/22 07:38 36.7 C 100 H 18 129/79 96 08/25/22 06:30 70 14 97 08/25/22 06:30 98/66 L 08/25/22 06:00 71 13 98 08/25/22 06:00 104/71 08/25/22 05:31 108/74 08/25/22 05:31 83 19 98 08/25/22 05:30 77 19 99 08/25/22 05:00 69 15 99 08/25/22 05:00 98/60 L 08/25/22 04:30 69 19 96 08/25/22 04:30 96/56 L 08/25/22 04:00 71 19 97 08/25/22 04:00 92/57 L 08/25/22 03:30 78 19 96 08/25/22 03:30 108/57 L 08/25/22 03:00 70 19 96 08/25/22 03:00 83/46 L 08/25/22 02:30 71 17 96 08/25/22 02:30 93/61 L 08/25/22 02:00 78 19 97 08/25/22 02:00 93/61 L 08/25/22 01:30 70 19 97 08/25/22 01:30 94/60 L 08/25/22 01:00 72 17 97 08/25/22 01:00 90/49 L 08/25/22 00:30 72 18 97 08/25/22 00:30 86/53 L 08/25/22 04:00 36.8 C 08/25/22 00:00 76 18 97 08/25/22 00:00 101/52 L 08/25/22 00:00 36.8 C 08/25/22 00:00 74 08/24/22 23:30 73 17 96 08/24/22 23:30 91/58 L 08/24/22 23:00 79 13 98 08/24/22 23:00 96/57 L 08/24/22 22:30 73 12 99 08/24/22 22:30 109/57 L O2 Del Method 08/25/22 07:38 Room Air 08/25/22 06:30 08/25/22 06:30 08/25/22 06:00 08/25/22 06:00 08/25/22 05:31 08/25/22 05:31 08/25/22 05:30 08/25/22 05:00 08/25/22 05:00 08/25/22 04:30 08/25/22 04:30 08/25/22 04:00 08/25/22 04:00 08/25/22 03:30 08/25/22 03:30 08/25/22 03:00 08/25/22 03:00 08/25/22 02:30 08/25/22 02:30 08/25/22 02:00 08/25/22 02:00 08/25/22 01:30 08/25/22 01:30 08/25/22 01:00 08/25/22 01:00 08/25/22 00:30 08/25/22 00:30 08/25/22 04:00 08/25/22 00:00 08/25/22 00:00 08/25/22 00:00 08/25/22 00:00 08/24/22 23:30 08/24/22 23:30 08/24/22 23:00 08/24/22 23:00 08/24/22 22:30 08/24/22 22:30
[2022-08-25] MEDS: dilTIAZem HCL 240 MG CAPCR PO SCH (12:44)
--- NOTE | 2022-08-25 15:12 | Cardiology Progress Note ---
Date of Service August 25, 2022 Assessment & Plan (1) Supraventricular tachycardia: (2) Heart palpitations: Plan 1. 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 Her pattern is that she has had it ever since high school, initially every year or so, subsequently every month or 2, more recently very frequently. The arrhythmia historically has not been very difficult for her to manage and therefore specific diagnosis was not made I believe, nor has she had electrophysiologic evaluation. At this point I think we should treat the arrhythmia with medications (I am going to start with diltiazem today) with thoughts for ablation in the near future. I am going to give 240 mg of long-acting diltiazem today, if her arrhythmia is better controlled this afternoon we should be able t o send her home. I will arrange follow-up in the office or schedule her for ablation based on her decision. 2. Palpitations: She can distinguish another type of feeling in her chest which on telemetry correlates with frequent premature atrial beats. I suspect (but cannot prove other than with symptoms) that the frequent premature atrial beats that are occurring now are relatively new and are responsible for the increased frequency of SVT. I do not know why she has frequent premature atrial beats now, but generally we cannot come up with a cause. That does not change our approach and my recommendation would be to consider ablation of her SVT in the future, in the meantime use diltiazem to see whether it controls atrial arrhythmia as well. Without the SVT she may not be bothered by the premature atrial beats and may not need long-term therapy. Admission and Anticipated Discharge Date Admission Date: August 24, 2022 Subjective She has continued to have episodes of supraventricular tachycardia but is on very low doses of diltiazem. She is very aware of the SVT and notes that it has been increasing in frequency gradually over the years but much more so recently. Additionally she is aware of a different type of sensation in her chest which is relatively recent and is associated with the significant increase in frequency of SVT. On telemetry monitoring she is able to identify this different type of sensation has frequent premature atrial beats which are probably triggering the increased frequency of SVT. Otherwise she has no complaints. Physical Exam Physical Exam: Constitutional: Alert, cooperative and in no distress. HEENT: Unremarkable Neck: No jugular venous distention, carotid pulses are normal and equal bilaterally without bruits. Pulmonary: Clear to auscultation bilaterally. Cardiac: Regular rhythm with no murmur, gallop or rub. Abdomen: Soft, nontender with normal bowel sounds. Extremities: No edema. Distal pulses intact. Neurologic: No focal findings. Gait is steady. Skin: No rash, ecchymoses or petechiae. Results & Data ([facility]) Vital Signs (Past 12 Hours) Vital Signs Temp Pulse Pulse Resp BP BP Pulse Ox 08/25/22 11:00 37 C 81 20 103/72 100 08/25/22 08:00 71 08/25/22 07:38 36.7 C 100 H 18 129/79 96 08/25/22 06:30 70 14 97 08/25/22 06:30 98/66 L 08/25/22 06:00 71 13 98 08/25/22 06:00 104/71 08/25/22 05:31 108/74 08/25/22 05:31 83 19 98 08/25/22 05:30 77 19 99 08/25/22 05:00 69 15 99 08/25/22 05:00 98/60 L 08/25/22 04:30 69 19 96 08/25/22 04:30 96/56 L 08/25/22 04:00 71 19 97 08/25/22 04:00 92/57 L 08/25/22 03:30 78 19 96 08/25/22 03:30 108/57 L 08/25/22 04:00 36.8 C O2 Del Method 08/25/22 11:00 Room Air 08/25/22 08:00 08/25/22 07:38 Room Air 08/25/22 06:30 08/25/22 06:30 08/25/22 06:00 08/25/22 06:00 08/25/22 05:31 08/25/22 05:31 08/25/22 05:30 08/25/22 05:00 08/25/22 05:00 08/25/22 04:30 08/25/22 04:30 08/25/22 04:00 08/25/22 04:00 08/25/22 03:30 08/25/22 03:30 08/25/22 04:00 Laboratory Results Cardiac Enzymes 08/25/22 Range/Units 05:27 AST 14 (13-39) U/L Coagulation 08/25/22 Range/Units 05:27 PT 10.7 (9.0-12.0) Seconds CBC 08/25/22 Range/Units 05:27 WBC 7.27 (4.8-10.8) K/ul RBC 4.64 (4.20-5.40) M/uL Hgb 14.1 (12.0-16.0) g/dl Hct 42.3 (37.0-47.0) % Plt Count 456 H (130-400) K/uL Comprehensive Metabolic Panel 08/25/22 Range/Units 05:27 Sodium 143 (136-145) mmol/L Potassium 3.6 (3.5-5.1) mmol/L Chloride 111 H (98-107) mmol/L Carbon Dioxide 28 (21-32) mmol/L BUN 15 (6-23) mg/dl Creatinine 0.64 (0.6-1.2) mg/dl Glucose 92 (70-99(Fasting)) mg/dl Calcium 8.9 (8.5-10.1) mg/dl AST 14 (13-39) U/L ALT 10 (7-52) U/L Alkaline Phosphatase 33 L (34-104) U/L Total Protein 6.6 D (6.0-8.3) gm/dl Albumin 4.0 (3.4-5.0) gm/dl Intake and Output 08/25/22 08/25/22 08/25/22 06:59 14:59 22:59 Intake Total 11.95 / 1012.533 5.35 / 5.35 Balance 11.95 / 1012.533 5.35 / 5.35 Intake: IV 11.95 / 1012.533 5.35 / 5.35 dilTIAZem HCL 125 mg In 11.95 / 12.533 5.35 / 5.35 Dextrose 5% 100 ml @ 1 MG/HR 1 mls/hr IV .Q24H [facility] Rx#: [id number] Other: # Unmeasured Voids 1 Weight 60.6 kg Weight Measurement Method Built in [facility] Diagnostic Findings Telemetry: Mostly sinus rhythm with very frequent premature atrial beats, frequent episodes of SVT of brief duration. Up to several minutes in duration. PG Care Time/CCT Total # of Minutes Spent Total Time Spent with Patient: Total time spent is greater than 50% in coordination of care (as documented) at patient's floor/unit and/or counseling patient: Coding Level of Care Code 75167 SUB INP/OBS CARE 3/50MIN Diagnoses Supraventricular tachycardia I47.1 Heart palpitations R00.2
--- NOTE | 2022-08-26 05:45 | Electrocardiogram Report ---
Test Reason : Blood Pressure : / mmHG Vent. Rate : 089 BPM Atrial Rate : 089 BPM P-R Int : 164 ms QRS Dur : 084 ms QT Int : 376 ms P-R-T Axes : 076 091 067 degrees QTc Int : 457 ms Sinus rhythm with Premature supraventricular complexes and with intermittent aberrant ventricular con duction Possible Left atrial enlargement Rightward axis Septal infarct (cited on or before 24-AUG-2022) Abnormal ECG When compared with ECG of 24-AUG-2022 14:08, Premature supraventricular complexes are now Present Confirmed by Cecil Ruiz ([id number]) on 08/26/2022 5:45:08 AM Referred By: Alecia Craig Confirmed By:Cecil Ruiz
[2022-08-26 06:45] LABS: Hematocrit (blood only) 40.9 % (37.0-47.0); Hemoglobin 13.8 g/dl (12.0-16.0); Mean Corpuscular Hemoglobin 30.9 pg (25.0-34.0); Mean Corpuscular Hgb Conc 33.7 g/dL (32.0-36.0); Mean Corpuscular Volume 91.7 fL (80.0-100.0); Mean Platelet Volume 9.5 fL (9.4-12.4); Platelet Count 441 K/uL (130-400); RDW Coefficient of Variation 13.7 % (11.5-14.5); Red Blood Count 4.46 M/uL (4.20-5.40); White Blood Count 6.27 K/ul (4.8-10.8)
[2022-08-26 07:46] LABS: Alanine Aminotransferase 12 U/L (7-52); Albumin Globulin Ratio 1.6 (0.9-2); Albumin Level 4.2 gm/dl (3.4-5.0); Alkaline Phosphatase 32 U/L (34-104); Anion Gap 5 (3-11); BUN Creatinine Ratio 28.1 (10-20); Bilirubin,Total 0.8 mg/dl (0.2-1.0); Blood Urea Nitrogen 18 mg/dl (6-23); Calcium 8.6 mg/dl (8.5-10.1); Carbon Dioxide 25 mmol/L (21-32); Chloride 107 mmol/L (98-107); Creatinine Clr Calc Pharmacy 101.5 ml/min; Est GFR (African American) 128.5 ml/min; Est GFR (Non-African American) 110.8 ml/min; Globulin 2.7 gm/dl (2.5-4.0); Glucose 94 mg/dl (70-99(Fasting)); Magnesium 2.2 mg/dl (1.7-2.4); Sodium 137 mmol/L (136-145); Total Protein 6.9 gm/dl (6.0-8.3)
--- NOTE | 2022-08-26 08:55 | Cardiology Progress Note ---
Date of Service August 26, 2022 Assessment & Plan (1) Supraventricular tachycardia: (2) Heart palpitations: Plan 1. 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 Her pattern is that she has had it ever since high school, initially every year or so, subsequently every month or 2, more recently very frequently. The arrhythmia historically has not been very difficult for her to manage and therefore specific diagnosis was not made I believe, nor has she had electrophysiologic evaluation. At this point I think we should treat the arrhythmia with medications (diltiazem) with thoughts for ablation in the near future. Diltiazem appears to be working very well for her SVT with no episodes since very shortly after she received her first dose. I would continue the current dose of 20 to 40 mg daily as an outpatient and after discussion with her I am going to arrange outpatient electrophysiologic study and ablation with Dr. Echeverria. 2. Palpitations: She can distinguish another type of feeling in her chest which on telemetry correlates with frequent premature atrial beats. I suspect (but cannot prove other than with symptoms) that the frequent premature atrial beats that are occurring now are relatively new and are responsible for the increased frequency of SVT. I do not know why she has frequent premature atrial beats now, but generally we cannot come up with a specific cause. That does not change our approach and my recommendation is ablation of her SVT, in the meantime use diltiazem to see whether it helps to control the atrial arrhythmia as well. Without the SVT she may not be bothered by the premature atrial beats, although currently she is somewhat annoyed by them but over time that can change. At electrophysiologic study perhaps the general location could be easily determined although ablation of PACs is often problematic. On her electrocardiogram her PACs are buried in the T wave so I cannot determine the morphology to try to identify an origin. Admission and Anticipated Discharge Date Admission Date: August 24, 2022 Subjective She is doing well today, she feels better with the diltiazem and is noted no SVT. She still feels the premature atrial beats, which is a different sensation, but I believe that is improved as well. No side effects on diltiazem. Physical Exam Physical Exam: Constitutional: Alert, cooperative and in no distress. HEENT: Unremarkable Neck: No jugular venous distention, carotid pulses are normal and equal bilaterally without bruits. Pulmonary: Clear to auscultation bilaterally. Cardiac: Regular rhythm with no murmur, gallop or rub. Abdomen: Soft, nontender with normal bowel sounds. Extremities: No edema. Distal pulses intact. Neurologic: No focal findings. Gait is steady. Skin: No rash, ecchymoses or petechiae. Results & Data ([facility]) Vital Signs (Past 12 Hours) Vital Signs Temp Pulse Pulse Resp BP Pulse Ox O2 Del Method 08/26/22 07:31 36.6 C 78 17 115/73 98 Room Air 08/26/22 02:46 36.6 C 70 17 108/65 96 Room Air 08/25/22 23:03 68 08/25/22 22:43 36.6 C 73 18 102/68 98 Room Air Laboratory Results Cardiac Enzymes 08/26/22 Range/Units 05:56 AST TNP CBC 08/26/22 Range/Units 05:56 WBC 6.27 (4.8-10.8) K/ul RBC 4.46 (4.20-5.40) M/uL Hgb 13.8 (12.0-16.0) g/dl Hct 40.9 (37.0-47.0) % Plt Count 441 H (130-400) K/uL Comprehensive Metabolic Panel 08/26/22 Range/Units 05:56 Sodium 137 (136-145) mmol/L Potassium TNP Chloride 107 (98-107) mmol/L Carbon Dioxide 25 (21-32) mmol/L BUN 18 (6-23) mg/dl Creatinine 0.64 (0.6-1.2) mg/dl Glucose 94 (70-99(Fasting)) mg/dl Calcium 8.6 (8.5-10.1) mg/dl AST TNP ALT 12 (7-52) U/L Alkaline Phosphatase 32 L (34-104) U/L Total Protein 6.9 (6.0-8.3) gm/dl Albumin 4.2 (3.4-5.0) gm/dl Intake and Output 08/25/22 08/26/22 08/26/22 22:59 06:59 14:59 Intake Total 150 / 655.35 Balance 150 / 655.35 Intake: Oral 150 / 650 Other: # Unmeasured Voids 1 Weight 63.8 kg Weight Measurement Method Built in [facility] Diagnostic Findings Telemetry: Sinus rhythm, frequent PACs, no SVT PG Care Time/CCT Total # of Minutes Spent Total Time Spent with Patient: Total time spent is greater than 50% in coordination of care (as documented) at patient's floor/unit and/or counseling patient: Coding Level of Care Code 71402 SUB INP/OBS CARE 2/35MIN Diagnoses Supraventricular tachycardia I47.1 Heart palpitations R00.2
[2022-08-26] MEDS: dilTIAZem HCL 240 MG CAPCR PO SCH (08:57)
--- NOTE | 2022-08-26 09:33 | XCELERA ---
[id number] \\[id number]}___[id number]
--- NOTE | 2022-08-26 09:33 | Discharge Summary ---
Date of Service August 26, 2022 Admission HPI Per Admitting Provider Bethany is a 42 year old female with a PMH significant for tachycardia who presented to the [facility] ED on 08/24/22 for tachycardia noted at her PCP's office today. Per chart review, the patient has a previous history of short episodes of tachycardia which normally resolve on their own. Over the past 4 days the episodes have been increasing in frequency with HR in the 150's a home. She was seen by here PCP today who obtained an ECG which showed HR in the 160's; she was sent to the ED for further evaluation. In the ED the patient was found to be afebrile, hypertensive at 165/106, and an initial HR of 198. ECG showed SVT with HR of [address] depression in the inferior and lateral leads. Labs were remarkable for A CBC with platelet count of 524 otherwise WNL, CMP WNL, initial high sensitivity trop of 2.6. Chest xray was read as "No acute chest disease.". The patient was given two doses of 6 mg IV adenosine, and one dose of 12 mg IV adenosine and she initially broke into the 80's. Her HR went back into the 150's -160's and she received 2 doses 5 mg IV Lopressor and 25 mg PO metoprolol succinate. Cardiology was Consulted by the ED staff who recommended admission for further assessment and treatment. At the time of the exam the patient was sitting in bed in no acute distress with her significant other sitting bedside. She states that she has a previous history of tachycardia with HR intermittently in the 140's. When these episodes occur it's usually for 15-20 min but they resolve spontaneously or if she holds her breath or drinks cold water. Over the past 4 days she has had increased episodes of tachycardia with episodes lasting up to 1 hour. When they occur she is without chest pain, SOB, lightheaded, or dizziness but she will feel the heart palpitations. She was seen by her PCP today who sent her to the ED for further evaluation. At the time of my exam the patient had received a dose of 5 mg IV Lopressor as her HR increased to the 150's. Her HR remained in the 50's- 80's during my exam with PAC's and PVC's noted on the monitor. She was asymptomatic during my exam and her blood pressure remained stable. She denies recent fever, chills, cough, nausea, vomiting, diarrhea, dysuria hematuria, LE swelling and recent trauma. Please refer to Dr. Amin's attestation for any changes to the treatment plan Admission Exam Per Admitting Provider General:In no acute distress, stated age, well-nourished, good hygiene, non- toxic appearing HEENT:Normocephalic, atraumatic, no scleral icterus, pupils around round, symmetrical, and reactive to light, moist mucus membranes, trachea midline, no thyromegaly Chest/Pulmonary:No respiratory distress, symmetrical chest expansion, clear breath sounds throughout, cardioversion pads currently in place Cardiovascular:regular rate with irregular rhythm, no murmurs noted Abdomen:Negative for ascites and bruising, normoactive bowel sounds, soft, non- tender to palpation throughout Musculoskeletal:Symmetrical and without signs of acute trauma, upper and lower extremities with full ROM, no atrophy, spasticity, or flaccidity Extremities:Radial, dorsalis pedis, and posterior tibial pulses are intact and symmetrical, no edema noted in the BL LE's Skin:Warm, dry, no rashes , lesions, or scars noted Neuro:Alert and oriented to person, place, month, year, and president, no focal defects, CN II-XII tested and intact,no tremors noted Psych:No acute distress, calm and cooperative during the exam Principal Diagnosis Supraventricular tachycardia Discharge Exam General: Awake and alert and in no acute distress. Skin: No ecchymoses or generalized lesions. HEENT: No JVD. Lungs: Breath sounds clear to auscultation bilaterally. Normal respiratory effort. Cardiovascular: Normal rate, normal S1 and S2. No murmurs. Abdomen: Nontender to palpation. Extremities: No lower extremity edema bilaterally. Neurologic: Alert and oriented to person, place, and time. No focal neurological deficits. Discharge Data Allergies Allergy/AdvReac Type Severity Reaction Status Date / Time No Known Allergies Allergy Verified 08/24/22 14:36 Consultations 08/24/22 14:21 Consult Cardiology Stat 08/24/22 14:39 ED Decision to Admit Stat Ordered Studies Chest X-Ray 08/24/22 13:10 XR chest 1V portable CLINICAL HISTORY: palpitations TECHNIQUE: Single frontal radiograph of the chest was obtained. Comparison: None available at the time of this dictation. FINDINGS: No lines and tubes are seen. The cardiomediastinal silhouette is normal. The lungs are clear. No evidence of pleural effusion or pneumothorax. IMPRESSION: No acute chest disease. ACT 112: Negative or not required by law. Electronically signed by: Sin Medina M.D. 08/24/2022 2:08 PM Cardiac Enzymes 08/26/22 Range/Units 05:56 AST TNP CBC 08/26/22 Range/Units 05:56 WBC 6.27 (4.8-10.8) K/ul RBC 4.46 (4.20-5.40) M/uL Hgb 13.8 (12.0-16.0) g/dl Hct 40.9 (37.0-47.0) % Plt Count 441 H (130-400) K/uL Comprehensive Metabolic Panel 08/26/22 Range/Units 05:56 Sodium 137 (136-145) mmol/L Potassium TNP Chloride 107 (98-107) mmol/L Carbon Dioxide 25 (21-32) mmol/L BUN 18 (6-23) mg/dl Creatinine 0.64 (0.6-1.2) mg/dl Glucose 94 (70-99(Fasting)) mg/dl Calcium 8.6 (8.5-10.1) mg/dl AST TNP ALT 12 (7-52) U/L Alkaline Phosphatase 32 L (34-104) U/L Total Protein 6.9 (6.0-8.3) gm/dl Albumin 4.2 (3.4-5.0) gm/dl Intake and Output 08/25/22 08/26/22 08/26/22 22:59 06:59 14:59 Intake Total 150 / 655.35 Balance 150 / 655.35 Intake: Oral 150 / 650 Other: # Unmeasured Voids 1 Weight 63.8 kg Weight Measurement Method Built in [facility] DICTATED BY:Ceicl Ruiz MD Test Reason : Blood Pressure : / mmHG Vent. Rate : 089 BPM Atrial Rate : 089 BPM P-R Int : 164 ms QRS Dur : 084 ms QT Int : 376 ms P-R-T Axes : 076 091 067 degrees QTc Int : 457 ms Sinus rhythm with Premature supraventricular complexes and with intermittent aberrant ventricular conduction Possible Left atrial enlargement Rightward axis Septal infarct (cited on or before 24-AUG-2022) Abnormal ECG When compared with ECG of 24-AUG-2022 14:08, Premature supraventricular complexes are now Present Confirmed by Cecil Ruiz ([id number]) on 08/26/2022 5:45:08 AM Referred By: Alecia Craig Confirmed By:Cecil Ruiz Signed By: 08/26/22 0545 Dictated:08/24/22 1520 Hospital Course (1) Supraventricular tachycardia: 42-year-old generally healthy woman with palpitations recurring throughout her entire adult life, now characterized on ECG as supraventricular tachycardia, possibly AV jessika reentrant mechanism. -Control System Computer Scientist did see her yesterday: recommended PO diltiazem 240 mg -Cardiology will follow up: outpatient electrophysiologic study and ablation with Dr. Echeverria -Continue dose of 240 mg diltiazem daily (2) Heart palpitations: -Patient has frequent palpitations, of which she has had most of her adult life: these are thought to be correlated to frequent premature atrial beats -will continue SVT management and patient will follow with cardiology in the outpatient setting Plan Patient was full code this admission. Total Time Total Time Spent Total Time Spent (In Minutes): Please see attending attestation. Discharge Plan Discharge Items Patient Disposition: Home - Self-Care Reason For Visit: REF BY DOC,ABNORMAL EKG,PALPITATIONS Discharge Diagnosis: SVT Activity: Per Instructions section Non-emergency contact: Primary Care Provider and Radiology Technician Call non-emergency contact if: your symptoms worsen, your pain is worsening and your temperature is above 101 Follow-up/Referrals: Alecia Craig MD [Primary Care Provider] - 09/01/22 12:00 pm Juan C Echeverria MD [Physician] - 09/01/22 9:45 am Diet: Regular Addtl Attending Provider Instructions: A discharge summary will be sent to your primary care physician to ensure continuity of care. You came to the hospital for increased sustained heart rates and increased frequency of increased heart rates. While in the hospital you were seen by the brewer helper and given medication to help keep your heart rate down. The cause of these high heart rates may be due to electrical disturbances in the heart. It was advised for you to follow up with an cloth folder machine brewer helper for the discussion of possible ablation. Follow-up: * You should be seen by your primary physician within the next week. * You should be seen by the cloth folder machine (cardiology) within the next few weeks. Medications: Your medication list has been reviewed and reconciled upon discharge to ensure accuracy and continuity of care. An updated list of all your medications is included with your hospital discharge paperwork. Please review this list closely, and make note of any changes. * You were started on the medication diltiazem extended release 240mg to take daily. This will help keep your heart rate down. Take your medications as instructed; do not skip a dose of your medicines. Make sure all of your doctors know every medicine you are taking (including [id number] medicines, vitamins, and supplements). let your primary care provider know before taking any new medicines because some of these may interact with your current medications, or may make your symptoms worse. CONTACT YOUR PRIMARY CARE PROVIDER if you experience any of the following: * Fevers or shaking chills * Shortness of breath not relieved by inhalers, fainting * Sudden abdominal distension not relieved by catheterization. * Difficulty following your treatment plan, or difficulty taking medications CALL 911 OR GO TO THE EMERGENCY DEPARTMENT if you experience any of the following: * Sudden, severe abdominal pain or nausea/vomiting * Severe chest pain, or chest pain that radiates (moves) to your jaw or arm * Sudden, severe shortness of breath or difficulty breathing It was was our pleasure taking care of you here at [facility] . Thank you for allowing us to participate in your care. Pending Studies at Discharge: No Stand-Alone Forms: [facility], Smoking Cessation Medications and DC Order Prescriptions: New diltiazem HCl 240 mg Capsule,Extended Release 24hr 240 mg PO QAM 30 Days Qty: 30 0RF Continued lysine [L-Lysine] 500 mg tablet 500 mg PO DAILY valacyclovir [Valtrex] 500 mg tablet 1,000 mg PO BID PRN (Reason: outbreak) Rx Instructions: Take 1,000 mg orally q12 for one day PRN Discharge Orders: Discharge Order (Routine); Ordered 08/26/22 Ordered By: Wellington Chinchilla Admission Data Admit Date/Time: 08/24/22 15:11 Attending Provider: Betsy Samuel Admit Provider: Gregorio Amin Primary Care Provider: Alecia Craig Other Providers: Gold Bill ; Gregorio Amin Other Interventions: Discharge Summary Assessment (RN) Last Done: 08/26/22 10:57 Supervising Physician Co-Signing Physician Notes Medical Student Supervision Note: I was personally present during medical student patient encounter and independently interviewed and examined the patient and verified the nguyen history and physical, reviewed labs and image studies, discussed the case with Shilpa Holt and agree with the findings and care plan. No concerns this am. No further palpitations. no chest pain, shortness of breath. o/e - comfortable, AAOx3 Heart - regular rate rhythm on monitor no respiratory distress Normal mood affect. 42 y/o F admitted for recurrent SVT at home and in ED despite multiple adenosine injections requiring IV cardizem drip. Has had these symptoms for months. During hospitalization she reported no chest pain, shortness of breath. IV cardizem switched to PO 240mgs cardizem. Tolerated well. No further symptoms and Telemetry with no further SVT. Also had multiple PACs while still on IV cardizem. Improved after switching to PO dose. She will follow up with cardiology as outpatient - cardio office to contact her. Will then be evaluated for need of ablation as well.
== END 2022-08-26 11:12 | disposition home or self-care (01) | DRG 310 ==
LOC: ED 12:51 → SUATTDRO 15:11 → 1E 15:11 → 2E 08-25 18:54